=== PATIENT | male | born 1980 | race Hispanic/Latino ===

== ENCOUNTER 2021-03-17 09:18 | Emergency (ER) | payer OTHER, SELFPAY ==
--- NOTE | ~2021-03-17 | XR_ITS ---
XR chest 1V portable DATE: 03/17/2021 10:58 INDICATION: Headache TECHNIQUE: Portable AP chest on 03/17/2021 at 1054 hours COMPARISON: None FINDINGS: Normal heart size. No hilar or mediastinal enlargement. No pulmonary infiltrate or consolid ation, pleural effusion or pulmonary vascular congestion or pneumothorax. Included skeletal structure s are unremarkable. IMPRESSION: No active cardiopulmonary disease Reviewed, dictated and finalized at location A. WASHER
--- NOTE | ~2021-03-17 | CT_ITS ---
EXAMINATION: CT brain wo con DATE: 03/17/2021 11:05 INDICATION: Headache TECHNIQUE: Computed tomography (CT) of the head was performed without intravenous contrast. The mA wa s adjusted according to patient size. Iterative reconstruction technique was employed. Exam dose: 60 5.33 mGy-cm total exam DLP. COMPARISON: None FINDINGS: No intracranial mass lesion or hemorrhage or cerebrovascular accident. No midline shift or mass effect effect. Normal ventricular size. Bilateral carotid siphon internal carotid artery calcifications. No subdural or epidural hematoma. Mucous retention cyst or polyp in the posterior aspect of the right maxillary sinus and minimal mucop eriosteal thickening of the left sphenoid sinus. The mastoid air cells are normally developed and aerated. No fracture or bone destruction of the cranial vault. IMPRESSION: Cerebral atherosclerosis No acute intracranial abnormality Reviewed, dictated and finalized at Location [facility]. Reviewed, dictated and finalized at location A. FIELD MANAGER
[2021-03-17 09:23] VITALS: BP 130/80; PULSE 71; RESP 18; TEMP 36.7; O2SAT 96
--- NOTE | 2021-03-17 10:48 | ECG_ITS ---
Measurements Intervals [place] Rate: 53 P: 34 MT: 122 QRS: -23 QRSD: 97 T: -6 QT: 423 QTc: 397 Interpretive Statements SINUS BRADYCARDIA BORDERLINE T WAVE ABNORMALITY- INFERIOR LEADS BASELINE ARTIFACT- I, II, III, AVR, AVL, AVF, V1-V2 BORDERLINE ECG Electronically Signed On 03-17-2021 17:45:40 COMMUNITY SERVICES OFFICER by Diogo Carpenter D.O.
[2021-03-17] MEDS: SODIUM CHLORIDE 0.9% IV 1,000 ML 999 ML IV CONT (11:13)
[2021-03-17] MEDS: KETOROLAC 30 MG/ML VIAL (*BKC) IV PUSH (11:13)
--- NOTE | 2021-03-17 11:26 | ED.GENADULT ---
HPI - General Adult General Chief complaint: Headache Stated complaint: migraine Time Seen by Provider: 03/17/21 10:47 Source: patient Mode of arrival: ambulatory Limitations: no limitations History of Present Illness HPI narrative: Patient presents for evaluation of headache for the last 2 days. Symptoms started quickly and have persisted since that time. Pain is in the frontal and bilateral parietal regions, constant, rated between 6 and 10 out of 10 in severity. No history of headaches. He reports photophobia. He has the sensation that he needs to clear his throat and has a mild nonproductive cough. He denies any chest pain, shortness of breath, abdominal pain, nausea, vomiting. He has been taking Tylenol and ibuprofen for his symptoms. No one in his household is currently sick, however a coworker tested positive for COVID recently. He has not taken a COVID test. He has not received COVID vaccination. He reports dizziness, lightheadedness and sensation that the room is spinning and feels somewhat unbalanced when he is walking. No additional complaints or concerns. Related Data Allergies Allergy/AdvReac Type Severity Reaction Status Date / Time Aminoglycosides Allergy Mild RASH Verified 03/17/21 10:22 bacitracin Allergy Mild RASH Verified 03/17/21 10:22 neomycin Allergy Mild RASH Verified 03/17/21 10:22 POLYMYXINBSULF Allergy Mild RASH Uncoded 03/17/21 10:22 Review of Systems Review of Systems: CONSTITUTIONAL: Denies fever, chills, or sweats. EYES: Denies visual changes, redness, or discharge. ENT: Reports sensation that he needs to clear his throat. Denies rhinorrhea, congestion, or otalgia. CARDIOVASCULAR: Denies chest pain, palpitations, or edema. RESPIRATORY: Reports cough. Denies shortness of breath GASTROINTESTINAL: Denies abdominal pain, nausea, vomiting, or diarrhea. GENITOURINARY: Denies dysuria or hematuria. SKIN: Denies rash or itching. MUSCULOSKELETAL: Denies back pain, joint pain, or myalgia. NEUROLOGIC: Reports headache, dizziness, lightheadedness, sensation that the room is spinning, feeling off balance while walking. PSYCHIATRIC: Denies anxiety or depression. [facility] Past Medical History Medical History (Updated 03/17/21 @ 12:55 by Ced Lu, DESIGN CENTER CONSULTANT, ) No pertinent past medical history (~03/17/21) Surgical History Surgical History S/P tendon repair Family History Family History Mother No pertinent past medical history Social History Social History (Updated 03/17/21 @ 11:35 by BARTOLO Nieves, ) Smoking status: Never smoker Alcohol intake: never Substance use: never Living arrangements: with family Gender identity (if verbalized by the patient): Male Sexual Orientation (if Verbalized by the Patient): Straight or Heterosexual Spiritual care concerns: No Exam Narrative: GENERAL: Well-appearing, well-nourished, and in no acute distress. HEAD: Normocephalic, atraumatic. EYES: PERRLA and EOMI. ENT: Nares clear, no rhinorrhea or epistaxis. Mucous membranes moist. Oropharynx without tonsillar hypertrophy exudate or other lesions. Bilateral TMs pearly brown nonbulging NECK: Supple. No adenopathy or masses. No carotid bruits or JVD CHEST: Clear to auscultation. No respiratory distress. No wheezes rales or rhonchi HEART: Regular rate and rhythm. No murmur heard. Normal peripheral pulses. ABDOMEN: Soft, nontender, nondistended, normal active bowel sounds. EXTREMITIES: Normal range of motion. No edema. SKIN: Warm, dry, no rash. NEURO: No focal deficits. Alert and oriented x3. PSYCH: Normal mood and affect. Course Course Emergency Course: This is a 40-year-old male that presented with complaints of headache without prior history of headaches. CT head was obtained and showed cerebral atherosclerosis without infarct or hemorrhage. Lab work-up was f
[2021-03-17 11:31] LABS: Basophils Percent Auto 0.2 % (0.2-1.2); Hematocrit 44.7 % (42.0-52.0); Immature Granulocyte Absolute 0.01 K/mm3 (0.00-0.031); Immature Granulocyte Percent A 0.2 % (0-0.5); Lymphocytes Absolute Auto 0.91 K/mm3 (0.9-3.2); Lymphocytes Percent Auto 22.4 % (18.3-44.2); Mean Corpuscular HGB Conc 33.6 g/dl (32-36); Mean Corpuscular Hemoglobin 31.1 pg (26-34); Mean Corpuscular Volume 92.7 fl (80-100); Mean Platelet Volume 9.9 fl (7.4-10.4); Monocytes Absolute Auto 0.7 K/mm3 (0.1-0.6); Neutrophils Absolute Auto 2.4 K/mm3 (1.3-6.7); Neutrophils Percent Auto 60.2 % (45.5-73.1); Platelet Count Result 268 k/mm3 (150-375); Red Blood Count 4.82 M/mm3 (4.6-6.20); Red Cell Distribution Width 12.4 % (11.5-14.5); White Blood Count 4.1 K/mm3 (4.5-10.0)
[2021-03-17] MEDS: ACETAMINOPHEN/BUTALBITAL/CAFFEINE 325-50-40 MG TABLET (FIORICET) 2 TAB PO (11:33)
[2021-03-17 11:46] LABS: Alanine Aminotransferase 17 U/L (4-50); Albumin Level 4.3 g/dL (3.5-5.1); Alkaline Phosphatase 55 U/L (38-126); Anion Gap 8 mmol/L (8-16); Aspartate Amino Transferase 23 U/L (17-59); Bilirubin,Total 0.4 mg/dL (0.2-1.3); Blood Urea Nitrogen 14 mg/dL (9-20); Calcium 8.9 mg/dL (8.4-10.2); Carbon Dioxide 27 mmol/L (22-30); Chloride 101 mmol/L (98-107); Estimated CRCL calculation 84 ml/min; Estimated Glomerular Filt Rate > 60; Glucose 89 mg/dL (65-110); Potassium 3.9 mmol/L (3.4-5.0); Sodium 136 mmol/L (137-145)
[2021-03-17 12:00] LABS: Amphetamine Screen Urine Negative (Negative); Barbiturate Screen Urine Negative (Negative); Benzodiazepines Screen Urine Negative (Negative); Cannabinoid Screen Urine Negative (Negative); Cocaine Screen Urine Negative (Negative); Methadone Screen Urine Negative (Negative); Opiate Screen Urine Negative (Negative); Phencyclidine Screen Urine Negative (Negative)
[2021-03-17 12:18] LABS: Add Urine Microscopic? YES; Appearance Urine Clear (Clear); Bilirubin Urine Negative (Negative); Blood Urine Negative (Negative); Color Urine Straw (Yellow); Glucose Urine UA Negative (Negative); Ketones Urine 1+ mg/dL (Negative); Leukocyte Esterase Ur Negative LEU/UL (Negative); Nitrate Urine Negative (Negative); Protein Urine Negative (Negative); RBC Urine 0-2 /hpf (0-2); Specific Grav Ur 1.009 (1.001-1.035); Urobilinogen Urine Negative mg/dL (<2.0); WBC Urine 0-3 /hpf
[2021-03-17 12:18] LABS: Thyroid Stimulating Hormone 0.348 uIU/mL (0.465-4.680)
[2021-03-17] MEDS: diphenhydrAMINE HCl INJ 50 MG/ML VIAL 25 MG IV PUSH (13:04)
[2021-03-17 13:21] VITALS: BP 122/68; PULSE 78; RESP 16; O2SAT 99
[2021-03-18 19:04] LABS: SARS-CoV-2 RNA PCR Positive
== END 2021-03-17 13:22 | disposition home or self-care (01) ==
PROVIDERS: Emergency Medicine; Emergency Provider Nurse Practitioner
DX: U07.1 COVID-19 (principal); R51.9 Headache, unspecified; I67.2 Cerebral atherosclerosis; R00.1 Bradycardia, unspecified; R94.31 Abnormal electrocardiogram [ECG] [EKG]
CPT/HCPCS: 36415; 70450; 71045; 80053; 80307; 81001; 84443; 85025; 87081; 87804; 87880; 93005; 96361; 96374; 96375; 99284; A9270; C9803; J1200; J1885; J7030; U0003; U0005

== ENCOUNTER 2022-04-20 17:56 | Emergency (ER) | payer OTHER, SELFPAY ==
--- NOTE | ~2022-04-20 | CT_ITS ---
EXAMINATION: CT abdomen pelvis wo con DATE: 04/20/2022 21:51 INDICATION: Right flank pain. Nausea and vomiting. TECHNIQUE: Computed tomography (CT) of the abdomen and pelvis was performed without intravenous contr ast. Automated exposure control and iterative reconstruction technique were employed. The dose-length product was 359.53 mGy-cm. COMPARISON: CT abdomen and pelvis 05/04/2008 FINDINGS: The visualized portions of the lung bases demonstrate mild atelectasis. No pleural effusion . The heart size is normal. No pericardial effusion. There is a small sliding hiatal hernia. The live r, gallbladder, spleen, pancreas, adrenal glands, and left kidney are normal. There is mild right hyd ronephrosis and hydroureter. There is a 3 mm stone at right ureterovesicular junction. There is diver ticulosis of the colon without evidence of diverticulitis. There are no dilated loops of bowel. The a ppendix is normal. There are no pathologically enlarged lymph nodes. There is no free intraperitoneal fluid. There is mild lumbar spondylosis. IMPRESSION: 1. 3 mm stone at right ureterovesicular junction with mild right hydronephrosis and hydroureter. Reviewed, dictated and finalized at location A. UTER OPERATOR
[2022-04-20 18:21] LABS: Basophils Percent Auto 0.5 % (0.2-1.2); Eosinophils Absolute Auto 0.1 K/mm3 (0-0.3); Eosinophils Percent Auto 1.4 % (0-4.4); Hematocrit 43.2 % (42.0-52.0); Hemoglobin 14.3 g/dL (14.0-18.0); Immature Granulocyte Absolute 0.02 K/mm3 (0.00-0.031); Immature Granulocyte Percent A 0.2 % (0-0.5); Lymphocytes Absolute Auto 1.37 K/mm3 (0.9-3.2); Lymphocytes Percent Auto 15.8 % (18.3-44.2); Mean Corpuscular HGB Conc 33.1 g/dl (32-36); Mean Corpuscular Hemoglobin 29.9 pg (26-34); Mean Corpuscular Volume 90.2 fl (80-100); Mean Platelet Volume 9.9 fl (7.4-10.4); Monocytes Absolute Auto 0.6 K/mm3 (0.1-0.6); Monocytes Percent Auto 6.7 % (2.6-8.5); Neutrophils Absolute Auto 6.6 K/mm3 (1.3-6.7); Neutrophils Percent Auto 75.4 % (45.5-73.1); Platelet Count Result 359 k/mm3 (150-375); Red Blood Count 4.79 M/mm3 (4.6-6.20); Red Cell Distribution Width 12.6 % (11.5-14.5); White Blood Count 8.7 K/mm3 (4.5-10.0)
[2022-04-20 18:32] LABS: Appearance Urine Slightly Cloudy (Clear); Bilirubin Urine Negative (Negative); Blood Urine Negative (Negative); Color Urine Yellow (Yellow); Glucose Urine UA Negative (Negative); Ketones Urine Negative (Negative); Leukocyte Esterase Ur Negative LEU/UL (Negative); Nitrate Urine Negative (Negative); Protein Urine Negative (Negative); Specific Grav Ur 1.015 (1.001-1.035); pH Urine 8.5 (5.0-9.0)
[2022-04-20 18:37] LABS: Alanine Aminotransferase 22 U/L (6-50); Albumin Level 4.3 g/dL (3.5-5.1); Alkaline Phosphatase 51 U/L (38-126); Anion Gap 4 mmol/L (8-16); Aspartate Amino Transferase 24 U/L (17-59); Bilirubin,Total 0.4 mg/dL (0.2-1.3); Blood Urea Nitrogen 16 mg/dL (9-20); Calcium 8.7 mg/dL (8.4-10.2); Carbon Dioxide 31 mmol/L (22-30); Chloride 106 mmol/L (98-107); Estimated CRCL calculation 73 ml/min; Estimated Glomerular Filt Rate > 60; Glucose 111 mg/dL (65-110); Potassium 4.2 mmol/L (3.4-5.0); Sodium 141 mmol/L (137-145)
[2022-04-20 18:38] LABS: Amorphous Sediment Urine Few; Bacteria Urine Trace /hpf; Mucus Urine Rare /lpf; RBC Urine 21-50 /hpf (0-2); WBC Urine 0-3 /hpf
[2022-04-20 18:39] LABS: Add Urine Microscopic? YES
--- NOTE | 2022-04-20 21:07 | ED.GENADULT ---
HPI - General Adult General Chief complaint: Urogenital-Male Stated complaint: kindey stone Time Seen by Provider: 04/20/22 21:05 Source: RN notes reviewed History of Present Illness HPI narrative: Patient presents emergency room from home for right-sided flank pain. Patient states pain began approximately 5 hours ago. The pain is located in the right flank radiates around the right side the abdomen. Described as sharp and stabbing in nature. Associated with nausea and vomiting. Denies any fevers or chills, chest pain shortness of breath diarrhea or any other symptoms. States he took 800 mg of ibuprofen at home with no relief. States he has a history of kidney stones and this feels consistent with prior stones he has never been seen by urologist Related Data Allergies Allergy/AdvReac Type Severity Reaction Status Date / Time Aminoglycosides Allergy Mild RASH Verified 04/20/22 21:30 bacitracin Allergy Mild RASH Verified 04/20/22 21:30 neomycin Allergy Mild RASH Verified 04/20/22 21:30 POLYMYXINBSULF Allergy Mild RASH Uncoded 04/20/22 21:30 Review of Systems Review of Systems: Gen.: Denies fevers or chills ENT: Denies congestion Respiratory: Denies shortness of breath or cough CV: Denies chest pain or palpitations GI: See HPI Musculoskeletal: Denies back pain or muscle pain Neuro: Denies numbness, tingling, weakness or focal weakness Skin: Denies rash Except as documented, all other systems reviewed and negative [facility] Past Medical History Medical History No pertinent past medical history (~03/17/21) Surgical History Surgical History S/P tendon repair Family History Family History Mother No pertinent past medical history Social History Social History Smoking status: Never smoker Alcohol intake: never Substance use: never Living arrangements: with family Gender identity (if verbalized by the patient): Male Sexual Orientation (if Verbalized by the Patient): Straight or Heterosexual Spiritual care concerns: No Exam Narrative: APPEARANCE: No acute distress, nontoxic, resting in bed EYES: EOMI HEENT: Normocephalic, atraumatic, OMM RESPIRATORY: No respiratory distress Clear to auscultation bilaterally with no rhonchi wheezing or rales. CARDIOVASCULAR: Regular rate and rhythm without murmurs rubs or gallops. ABDOMINAL: Soft, nontender, nondistended, no rebound or guarding right flank tenderness MUSCULOSKELETAl: Moves all extremities. No clubbing, cyanosis or edema. NEURO: Awake and alert. Following commands, speech normal, no focal deficits SKIN:: Warm, dry. No rashes lesions or abrasions PSYCHIATRIC: Normal affect/mood, Course Course Emergency Course: Discussed with patient results of workup and diagnosis. Discussed need for follow-up with primary care, proper use of medication, and reasons to return to the emergency department. Patient understands and agrees to current treatment plan Medical Decision Making MDM Narrative Medical decision making narrative: Patient's abdomen is soft without significant pain or signs of surgical abdomen on serial exams. Lab and x-ray evaluations are reviewed and patient is felt to be a reasonable candidate for outpatient management. Patient was instructed as to limitations of x-ray and laboratory evaluation and encouraged to return to ED or primary physician for repeat exam in 12 hours if continued or worsening pain Lab Data 04/20/22 18:09 04/20/22 18:09 Labs: Lab Results 04/20/22 04/20/22 04/20/22 Range/Units 18:09 18:09 18:11 WBC 8.7 (4.5-10.0) K/mm3 RBC 4.79 (4.6-6.20) M/mm3 Hgb 14.3 (14.0-18.0) g/dL Hct 43.2 (42.0-52.0) % MCV 90.2 (80-100) fl MCH 29.9 (26-34) pg MCHC
[2022-04-20] MEDS: SODIUM CHLORIDE 0.9% IV 1,000 ML 999 ML IV CONT (21:34)
[2022-04-20] MEDS: ONDANSETRON INJ 4 MG/2 ML VIAL IV PUSH (21:35)
[2022-04-20] MEDS: MORPHINE SULFATE (*CRX) 4 MG/ML INJ IV PUSH (21:35)
[2022-04-20] MEDS: TAMSULOSIN HCL 0.4 MG CAPSULE PO (22:23)
[2022-04-20 22:25] VITALS: BP 124/85; PULSE 55; RESP 16; O2SAT 100
[2022-04-20 23:00] VITALS: BP 116/76; PULSE 59; RESP 16; O2SAT 99
== END 2022-04-20 23:00 | disposition home or self-care (01) ==
PROVIDERS: Emergency Medicine; Emergency Provider Emergency Medicine
DX: N13.2 Hydronephrosis with renal and ureteral calculous obstruction (principal)
CPT/HCPCS: 36415; 74176; 80053; 81001; 85025; 96361; 96374; 96375; 99284; A9270; J0131; J2270; J2405; J7030

== ENCOUNTER 2023-07-31 16:52 | Emergency (ER) | payer OTHER, SELFPAY ==
[2023-07-31 17:11] VITALS: BP 125/83; PULSE 70; RESP 14; TEMP 37.2; O2SAT 100
--- NOTE | 2023-07-31 17:15 | ED.URI ---
HPI - URI/Sore Throat General Chief Complaint: Upper Respiratory Infection Stated Complaint: strep exposure,rash on body. Time Seen by Provider: 07/31/23 17:18 Source: patient and RN notes reviewed Mode of arrival: ambulatory Limitations: no limitations History of Present Illness HPI Narrative: 43-year-old male with history of head and neck cancer who is currently undergoing radiation and chemotherapy presents with concern rash, sore throat, strep throat. He also reports headache. He denies chills, sweats, fever, nasal congestion or rhinorrhea. MD elicited complaint: sore throat Related Data Home Medications Medication Instructions Recorded Confirmed clonazepam 0.5 mg tablet 0.5 mg PO DIRECTED 07/31/23 07/31/23 oxycodone 5 mg/5 mL oral solution 5 mg PO DIRECTED 07/31/23 07/31/23 prochlorperazine maleate 10 mg 10 mg PO DIRECTED 07/31/23 07/31/23 tablet Allergies Allergy/AdvReac Type Severity Reaction Status Date / Time Aminoglycosides Allergy Mild RASH Verified 07/31/23 17:05 bacitracin Allergy Mild RASH Verified 07/31/23 17:05 neomycin Allergy Mild RASH Verified 07/31/23 17:05 POLYMYXINBSULF Allergy Mild RASH Uncoded 07/31/23 17:05 Review of Systems Review of Systems: CONSTITUTIONAL: Denies malaise, chills, sweats, or fever. EYES: Denies visual changes, redness, or discharge. ENT: Denies rhinorrhea, congestion, sinus pain, otalgia. Reports sore throat. CARDIOVASCULAR: Denies chest pain, palpitations, or edema. RESPIRATORY: Denies cough. Denies dyspnea. GASTROINTESTINAL: Denies abdominal pain, nausea, vomiting, diarrhea SKIN: Reports rash MUSCULOSKELETAL: Denies myalgia. NEUROLOGIC: Reports headache. All systems reviewed & are unremarkable except as noted in HPI and below PMFSH Past Medical History Medical History No pertinent past medical history (~03/17/21) Surgical History Surgical History S/P tendon repair Family History Family History Mother No pertinent past medical history Social History Social History Smoking status: Never smoker Alcohol intake: never Substance use: never Living arrangements: with family Gender identity (if verbalized by the patient): Male Sexual Orientation (if Verbalized by the Patient): Straight or Heterosexual Spiritual care concerns: No Comments At time of signature, agree with nursing past medical, surgical, social and family history. There is no relevant family history pertinent to the presenting complaint Exam Narrative: GENERAL: Well-appearing, well-nourished, and in no acute distress. HEAD: Normocephalic EYES: PERRLA, conjunctivae clear ENT: Nares clear. Mucous membranes moist. TM pearly brown with sharp light reflex bilaterally; no tragal tenderness. Oropharynx erythematous without lesions. Tonsils enlarged and without exudate, no drooling, no hoarseness, no trismus, uvula midline. NECK: Supple. No lymphadenopathy CHEST: Clear to auscultation, breath sounds equal. No wheezing, rhonchi, rales, or stridor. No respiratory distress, speaks in full sentences. HEART: Regular rate and rhythm. No murmur heard. SKIN: Warm, dry, no rash. NEURO: Alert and oriented x3. PSYCH: Normal mood and affect Course Course Emergency Course: Discussed rapid strep findings. Given patient's symptoms, immune compromise, exposure to strep through shared decision making least decided to prescribe the antibiotic pending culture Patient is aware of diagnosis, understands and agrees to treatment plan. Anticipatory guidance given. Patient agrees to follow-up as directed and is aware of reasons to seek care at the emergency department. Portions of this record may have been created with voice recognition software Level of Care:
== END 2023-07-31 17:30 | disposition home or self-care (01) ==
PROVIDERS: Emergency Provider Nurse Practitioner; PCP Physician Assistant
DX: J02.9 Acute pharyngitis, unspecified (principal); Z20.9 Contact with and (suspected) exposure to unspecified communicable disease; C76.0 Malignant neoplasm of head, face and neck; Z79.899 Other long term (current) drug therapy
CPT/HCPCS: 87081; 87880; 99213; G0463